=== PATIENT | male | born 1980 | race Asian ===

== ENCOUNTER 2023-10-20 16:49 | Emergency (ER) | payer OTHER ==
[2023-10-20 16:53] VITALS: BP 118/73; PULSE 96; RESP 18; TEMP 98.4; BMI 27.4
[2023-10-20] MEDS ORDERED: DIPHTH,PERTUSS(ACELL),TET 0.5 ML DISP.SYRIN IM ONE (17:52)
[2023-10-20] MEDS ORDERED: ACETAMINOPHEN 500 MG TABLET (FP) ONE (17:52)
[2023-10-20] MEDS ORDERED: IBUPROFEN 600 MG TABLET (FP) PO ONE (17:52)
[2023-10-20] MEDS: IBUPROFEN 600 MG TABLET (FP) PO ONE (17:57)
[2023-10-20] MEDS: ACETAMINOPHEN 500 MG TABLET (FP) PO ONE (17:57)
[2023-10-20] MEDS: DIPHTH,PERTUSS(ACELL),TET 0.5 ML DISP.SYRIN IM ONE (17:58)
[2023-10-20] MEDS ORDERED: BACITRACIN ZINC 15 GM TUBE TOPICAL OINTMENT ONE (18:25)
[2023-10-20] MEDS: BACITRACIN ZINC 15 GM TUBE TOPICAL OINTMENT TP ONE (18:26)
== END 2023-10-20 18:28 | disposition home or self-care (01) ==
LOC: JERFT 16:49
PROC: 3E0234Z Introduction of Serum, Toxoid and Vaccine into Muscle, Percutaneous Approach (ICD-10-PCS; principal; 2023-10-20)
DX: S80.812A Abrasion, left lower leg, initial encounter (principal); W54.0XXA Bitten by dog, initial encounter; Y99.0 Civilian activity done for income or pay; Z23 Encounter for immunization
CPT/HCPCS: 90471; 90715; 99284-25